=== PATIENT | male | born 1975 | race Caucasian/White ===

== ENCOUNTER 2018-11-27 21:58 | Emergency (ER) | payer OTHER ==
[~2018-11-27] VITALS: Ht 195.6 cm; Wt 109.1 kg
[2018-11-27 22:48] LABS: MICROSCOPIC AUTO
[2018-11-27 22:51] LABS: CULTURE INDICATED? NO
[2018-11-27] MEDS ORDERED: SODIUM CHLORIDE FLUSH 10ML SYR IVF ONE (23:00)
[2018-11-27 23:17] LABS: BASOPHILS # (AUTO) 0.05 x10^3/uL (0-0.1); BASOPHILS % (AUTO) 0 % (0-1); EOSINOPHILS # (AUTO) 0.02 x10^3/uL (0-0.4); EOSINOPHILS % (AUTO) 0 % (1-7); LYMPHOCYTES % (AUTO) 12 % (22-44); MD NO; MEAN CORPUSCULAR HEMOGLOBIN 31.3 pg (27.5-34.5); MEAN CORPUSCULAR HGB CONC 33.5 g/dL (33.2-36.2); MEAN CORPUSCULAR VOLUME 93.5 fL (81-97); MEAN PLATELET VOLUME 7.3 fL (7.4-10.4); MONOCYTES # (AUTO) 0.75 x10^3/uL (0.2-0.8); MONOCYTES % (AUTO) 5 % (2-9); NEUTROPHILS # (AUTO) 12.14 x10^3/uL (1.8-6.8); NEUTROPHILS % (AUTO) 82 % (42-75); PLATELET COUNT 382 x10^3/uL (130-400); RED CELL DISTRIBUTION WIDTH 13.6 % (9.4-14.8)
[2018-11-27 23:30] LABS: ALANINE AMINOTRANSFERASE 18 U/L (12-78); ALBUMIN 4.1 g/dL (3.4-5.0); ANION GAP 12 mmol/L (5-15); CALCIUM 9.1 mg/dL (8.5-10.1); CHLORIDE 106 mmol/L (98-107); CREATININE 1.27 mg/dL (0.7-1.3)
[2018-11-27 23:32] LABS: ALKALINE PHOSPHATASE 49 U/L (45-117); BILIRUBIN,TOTAL 0.8 mg/dL (0.2-1.0); TOTAL PROTEIN 8.1 g/dL (6.4-8.2)
--- NOTE | 2018-11-27 23:37 | NUR ---
PT TO ROOM FROM LOBBY
--- NOTE | 2018-11-28 | NUR ---
PT HERE FOR RLQ AND FLANK PAIN WITH PAINFUL URINATION. LABS AND RESULTS BACK. PT TO BE EVALUATED BY ERP. CALL LIGHT IN REACH
[2018-11-28] MEDS ORDERED: KETOROLAC 30 MG/1 ML ONE (00:25)
[2018-11-28] MEDS ORDERED: TAMSULOSIN 0.4 MG CAP.ER.24H ONE (00:25)
[2018-11-28] MEDS ORDERED: ONDANSETRON 2MG/ML, 2ML ONE (00:25)
[2018-11-28] MEDS ORDERED: MORPHINE SULFATE 4 MG/ML, 1ML ONE (00:26)
[2018-11-28] MEDS ORDERED: SODIUM CHLORIDE 0.9% 1,000ML IVBOLUS ONE (00:30)
[2018-11-28] MEDS ORDERED: MORPHINE SULFATE 4 MG/ML, 1ML IVPush PRN (00:30)
[2018-11-28] MEDS ORDERED: KETOROLAC 30 MG/1 ML IVPush ONE (00:30)
[2018-11-28] MEDS ORDERED: ONDANSETRON 2MG/ML, 2ML IVPush ONE (00:30)
[2018-11-28] MEDS ORDERED: TAMSULOSIN 0.4 MG CAP.ER.24H PO ONE (00:30)
--- NOTE | 2018-11-28 00:37 | NUR ---
PIV PLACED. PT MEDICATED FOR PAIN. VSS. CALL LIGHT IN REACH
--- NOTE | 2018-11-28 02:07 | NUR ---
Break RN: patient discharged with prescriptions and instruction. verbalized understanding.
[2018-11-28 02:09] VITALS: BP 111/68
== END 2018-11-28 02:11 | disposition home or self-care (01) ==
LOC: ED 11-28 01:10
DX: N20.0 Calculus of kidney (principal); R11.10 Vomiting, unspecified
CPT/HCPCS: 36415; 74176; 80053; 81001; 85025; 96361; 96374; 96375; 99284; J1885; J2270; J2405; J7030